=== PATIENT | male | born 1980 | race Caucasian/White ===

== ENCOUNTER 2016-08-08 23:55 | Emergency (ER) | payer OTHER ==
--- NOTE | ~2016-08-08 | CR252 ---
[facility]. [facility] A Service of [facility] & [facility] RADIOLOGY TEXT RESULTS PATIENT: SLY MCKNIGHT LOCATION: SED : [birth year] UNIT #: [id number] AGE: [address]: HUGO CALHOUN SEX: M ORDER DR: [id number] [place] [id number] E MR#: [id number] Acc #: [id number] NAME: SLY MCKNIGHT : 1980 SEX: M STUDY DATE/TIME: 08/09/2016 0:50 UNIT: SED ROOM: STUDY DESCRIPTION: CR Tibia and Fibula 2 Views Lt Attending Physician: Hugo Calhoun Ordering Physician: Physician Non-Staff Primary Care Physician: James Plaza M.D. MEDICAL IMAGING REPORT This report is preliminary unless electronic signature is present. EXAM Left tibia-fibula, 2 views COMPARISON None INDICATIONS 36-year-old male with [id number] lower extremity redness and pain for 3 hours. Patient ran to a log. FINDINGS Bones are anatomically aligned. No evidence of acute fracture. No radiopaque foreign body. No degenerative change. IMPRESSION No acute fracture, dislocation or radiopaque foreign body. No degenerative change. Dictated by... Lio Garcia M.D. THIS IS AN ELECTRONICALLY VERIFIED REPORT Lio Garcia M.D. at 08/13/2016 10:55 AM Sanam TD: 08/09/2016 08:35 JOB #: [id number] MEDICAL IMAGING REPORT
[~2016-08-08 23:55] MED LIST: ALPRAZOLAM PO; ANUSOL HC PR; FLEXERIL PO; KLONOPIN0.5 MG PO; LORTAB 10/500 T1 TAB PO; MOBIC PO; NO MEDICATIONS; PREVACID PO; VICODIN
[2016-08-09] MEDS ORDERED: CLONIDINE HCL0.1 MG PO (00:09)
[2016-08-09] MEDS ORDERED: VITAMIN B2 PO (00:10)
[2016-08-09] MEDS ORDERED: MAGNESIUM PO (00:11)
== END 2016-08-09 01:33 | disposition home or self-care (01) ==
LOC: SED 23:55
DX: S80.12XA Contusion of left lower leg, initial encounter (principal); I10 Essential (primary) hypertension; F41.9 Anxiety disorder, unspecified; K21.9 Gastro-esophageal reflux disease without esophagitis; F17.210 Nicotine dependence, cigarettes, uncomplicated; Z79.899 Other long term (current) drug therapy; W22.8XXA Striking against or struck by other objects, initial encounter; Y92.830 Public park as the place of occurrence of the external cause
CPT/HCPCS: 73590; 99283